=== PATIENT | female | born 1955 | race African-American/Black ===

== ENCOUNTER 2017-03-04 19:02 | Inpatient (IN) ==
[2017-03-04] MEDS ORDERED: methylPREDNISolone SOD SUC 125 MG/2 ML VIAL IV STA (19:38)
[2017-03-04] MEDS ORDERED: NITROGLYCERIN 2% OINT 1 INCH/GM PACK TOP STA (19:38)
[2017-03-04] MEDS ORDERED: ONDANSETRON 4 MG/2 ML VIAL IV STA (19:38)
[2017-03-04] MEDS ORDERED: hydrALAZINE 20 MG/1 ML VIAL IV STA (19:38)
[2017-03-04] MEDS ORDERED: FUROSEMIDE 100 MG/10 ML VIAL IV STA (19:38)
--- NOTE | 2017-03-04 19:56 | EKG Report ---
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
[2017-03-04] MEDS ORDERED: ONDANSETRON 4 MG/2 ML VIAL ONE (19:57)
[2017-03-04] MEDS ORDERED: NITROGLYCERIN 2% OINT 1 INCH/GM PACK TOP ONE (19:57)
[2017-03-04] MEDS ORDERED: hydrALAZINE 20 MG/1 ML VIAL ONE ×2 (19:57→21:14)
[2017-03-04] MEDS ORDERED: FUROSEMIDE 100 MG/10 ML VIAL ONE (19:58)
[2017-03-04] MEDS ORDERED: methylPREDNISolone SOD SUC 125 MG/2 ML VIAL ONE (19:58)
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
[2017-03-04] MEDS ORDERED: ALBUTEROL 2.5 MG/3 ML NEB RESP TX SCH (20:00)
[2017-03-04 20:40] LABS: Apearance,Urine CLEAR (Clear); Bilirubin,Urine Negative (Negative); Blood, Urine Negative (Negative); Glucose,Urine (UA) 150 mg/dL (Negative); Ketones,Urine Negative (Negative); Mucus,Urine Occasional /LPF (Occasional); Nitrite,Urine Negative (Negative); Protein,Urine Negative; Squamous Epithelial Cell,Urine Occasional /HPF (0-10); Urine Color Straw (Yellow); Urine Specific Gravity 1.006 (1.001-1.035); Urine Urobilinogen < 2.0 EU/DL (0.2-1.0)
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
[2017-03-04 20:48] LABS: Alanine Aminotransferase 23 U/L (13-56); Albumin 3.2 G/DL (3.4-5.0); Alkaline Phosphatase 153 U/L (45-117); Aspartate Amino Transferase 27 U/L (0-37); Bilirubin,Total < 0.39 MG/DL (0.2-1.0); Blood Urea Nitrogen 16 MG/DL (7-18); Calcium 10.1 MG/DL (8.5-10.1); Glucose 194 MG/DL (74-106); Osmolality,Calculated 282.5 MOS/KG (273-304); Potassium 4.2 MMOL/L (3.5-5.1); Sodium 139 MMOL/L (136-145); Total Protein 7.2 G/DL (6.4-8.3)
[2017-03-04 20:51] LABS: Troponin I Only 0.207 NG/ML (0.00-0.045)
[2017-03-04 20:52] LABS: Barbiturates Screen,Urine Negative (Negative); Benzodiazepines Screen,Urine Negative (Negative); Cannabinoid Screen,Urine Negative (Negative); Opiate Screen,Urine Negative (Negative); Phencyclidine Screen,Urine Negative (Negative)
[2017-03-04 21:03] LABS: Basophils % 0.4 % (0.0-0.8); Eosinophils # 0.1 10*3/uL (0.0-0.87); Hematocrit 33.5 VOL% (35.7-47.0); Hemoglobin 11.5 GM/DL (12.0-16.0); Immature Granulocytes % 0.4 %; Immature Granulocytes Absolute 0.03 #; Lymphocytes # 3.2 10*3/uL (1.4-4.0); Mean Corpuscular HGB Conc 34.3 GM/DL (32-36); Mean Corpuscular Hemoglobin 31 PG (27-34); Mean Corpuscular Volume 91.5 FL (87-102); Mean Platelet Volume 10.8 FL (9.6-12.0); Monocytes # 0.8 10*3/uL (0.11-0.8); Monocytes % 11.7 % (1.7-12.7); Neutrophils # 2.7 10*3/uL (1.4-7.4); Neutrophils % 39.5 % (38.7-73.9); Platelet Count 229 T/CUMM (130-400); Red Blood Count 3.66 MC/CUMM (3.8-5.5); Red Cell Distribution Width 14.1 % (9.3-17.3); White Blood Count 6.7 T/CUMM (4-12)
[2017-03-04] MEDS ORDERED: ZALEPLON 5 MG CAPSULE PO PRN (21:25)
[2017-03-04] MEDS ORDERED: ACETAMINOPHEN 325 MG TABLET PO PRN (21:25)
[2017-03-04] MEDS ORDERED: GLUCAGON 1 MG VIAL IM PRN (21:25)
[2017-03-04] MEDS ORDERED: ONDANSETRON 4 MG/2 ML VIAL IV PRN (21:25)
[2017-03-04] MEDS ORDERED: DEXTROSE 50% 25 GM/50 ML SYRINGE IV PRN (21:25)
[2017-03-04] MEDS ORDERED: ASPIRIN EC 325 MG TABLET PO STA (21:27)
[2017-03-04] MEDS ORDERED: ASPIRIN 325 MG TABLET ONE (21:33)
[2017-03-04] MEDS ORDERED: LORazepam 2 MG/1 ML VIAL IV STA (22:00)
[2017-03-04] MEDS ORDERED: niCARdipine INJ 25 MG in SODIUM CHLORIDE 0.9% 240 ML IV SCH (22:00)
[2017-03-04] MEDS ORDERED: LORazepam 2 MG/1 ML VIAL ONE (22:04)
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
[2017-03-04 23:54] LABS: Troponin I Only 0.236 NG/ML (0.00-0.045)
[2017-03-05] MEDS ORDERED: LABETALOL 20 MG/4 ML SYRINGE IV PRN (00:19)
[2017-03-05] MEDS: FOLIC ACID 1 MG TABLET PO SCH ×2 (00:29→20:32)
[2017-03-05] MEDS: ENOXAPARIN 40 MG/0.4 ML SYRINGE SUBCUT SCH ×2 (00:29→20:31)
[2017-03-05] MEDS: LORazepam 2 MG/1 ML VIAL IV PRN ×2 (00:42→11:05)
[2017-03-05 04:06] LABS: Basophils % 0.3 % (0.0-0.8); Hematocrit 36.3 VOL% (35.7-47.0); Hemoglobin 12.1 GM/DL (12.0-16.0); Immature Granulocytes % 0.9 %; Immature Granulocytes Absolute 0.06 #; Lymphocytes # 0.9 10*3/uL (1.4-4.0); Lymphocytes % 13.1 % (21.3-54.2); Mean Corpuscular HGB Conc 33.3 GM/DL (32-36); Mean Corpuscular Hemoglobin 31 PG (27-34); Mean Corpuscular Volume 93.6 FL (87-102); Mean Platelet Volume 10.7 FL (9.6-12.0); Monocytes # 0.1 10*3/uL (0.11-0.8); Monocytes % 1.7 % (1.7-12.7); Neutrophils # 5.8 10*3/uL (1.4-7.4); Platelet Count 248 T/CUMM (130-400); Red Blood Count 3.88 MC/CUMM (3.8-5.5); Red Cell Distribution Width 14.3 % (9.3-17.3); White Blood Count 6.9 T/CUMM (4-12)
[2017-03-05] MEDS: MORPHINE 2 MG/1 ML SYRINGE IV PRN ×3 (04:16→20:31)
[2017-03-05] MEDS: hydrALAZINE 20 MG/1 ML VIAL IV PRN (04:18)
[2017-03-05 04:46] LABS: Albumin 3.3 G/DL (3.4-5.0); Bilirubin,Total 0.5 MG/DL (0.2-1.0); Calcium 9.4 MG/DL (8.5-10.1); Osmolality,Calculated 288.4 MOS/KG (273-304); Potassium 3.8 MMOL/L (3.5-5.1); Risk Ratio 2.81; Thyroid Stimulating Hormone 0.682 uIU/ml (0.358-3.74); Total Protein 7.3 G/DL (6.4-8.3); VLDL CHOLESTEROL 46.6 MG/DL
[2017-03-05 04:56] LABS: Troponin I Only 0.272 NG/ML (0.00-0.045)
[2017-03-05] MEDS ORDERED: DEXTROSE 50% 25 GM/50 ML VIAL IV PRN (07:58)
[2017-03-05] MEDS ORDERED: GLUCAGON 1 MG VIAL IM PRN (07:58)
[2017-03-05] MEDS: INSULIN LISPRO 100 UNIT/ML SUBCUT SCH ×4 (08:31→20:30)
[2017-03-05] MEDS: FUROSEMIDE 40 MG/4 ML VIAL IV SCH (08:32)
[2017-03-05 08:40] LABS: Basophils % 0.1 % (0.0-0.8); Hematocrit 32.8 VOL% (35.7-47.0); Hemoglobin 11.4 GM/DL (12.0-16.0); Immature Granulocytes % 0.4 %; Immature Granulocytes Absolute 0.03 #; Lymphocytes # 1.9 10*3/uL (1.4-4.0); Lymphocytes % 22.5 % (21.3-54.2); Mean Corpuscular HGB Conc 34.8 GM/DL (32-36); Mean Corpuscular Hemoglobin 32 PG (27-34); Mean Corpuscular Volume 91.4 FL (87-102); Mean Platelet Volume 10.8 FL (9.6-12.0); Monocytes # 0.7 10*3/uL (0.11-0.8); Monocytes % 7.9 % (1.7-12.7); NRBC # 0.02 10*3/uL; Neutrophils # 5.9 10*3/uL (1.4-7.4); Neutrophils % 69.1 % (38.7-73.9); Platelet Count 243 T/CUMM (130-400); Red Blood Count 3.59 MC/CUMM (3.8-5.5); Red Cell Distribution Width 14.2 % (9.3-17.3); White Blood Count 8.5 T/CUMM (4-12)
--- NOTE | 2017-03-05 08:44 | EKG Report ---
Stationary ECG Study 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
[2017-03-05] MEDS: chlordiazePOXIDE 25 MG CAPSULE PO SCH ×3 (08:47→20:32)
[2017-03-05] MEDS: THIAMINE 100 MG TABLET PO SCH (08:47)
[2017-03-05] MEDS: MULTIVITAMIN (BEROCCA) TABLET PO SCH (08:47)
[2017-03-05] MEDS: PANTOPRAZOLE 40 MG TABLET PO SCH (08:48)
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
[2017-03-05] MEDS ORDERED: METOPROLOL TARTRATE 50 MG TABLET PO SCH (09:00)
[2017-03-05 09:18] LABS: Troponin I Only 0.274 NG/ML (0.00-0.045)
--- NOTE | 2017-03-05 09:24 | Hospitalist Progress Note ---
Assessment and Plan (1) Hypertensive urgency Status: Acute Assessment and plan: Blood pressure is much better controlled today at 113/90. I will continue her present oral medications. Current Visit: Yes (2) Elevated troponin Status: Acute Current Visit: Yes (3) DM type 2 (diabetes mellitus, type 2) Status: Chronic Assessment and plan: Blood glucose this morning is 483. I will continue sliding scale insulin coverage. 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 Current Visit: Yes Qualifiers: Complication of substance-induced condition: uncomplicated Qualified Code(s ): F10.230 - Alcohol dependence with withdrawal, uncomplicated (5) Acute renal insufficiency Status: Acute Assessment and plan: Her BUN and creatinine today are 17 and 1.60 respectively. Her acute renal failure appears to be improved with intravenous normal saline. Current Visit: Yes Hospitalist: Subjective Interval history: Patient was hospitalized here yesterday with acute alcohol withdrawal syndrome, hypertensive urgency, and elevated troponins. She has been treated with intravenous nicardipine, chlordiazepoxide, and Lorazepam. She appears significantly improved today. She is comfortable with no complaints. Exam - Constitutional Vitals: Period Temp Pulse Resp BP Sys/Almanza Pulse Ox Last 24 Hr 98.0 F-98.1 F 72-127 18-30 79-226/52-144 94-100 General appearance: normal weight, no acute distress - Head Head exam: Present: normal inspection - Neck Neck exam: Present: normal inspection - Respiratory Respiratory exam: Present: clear to auscultation bilaterally - Cardiovascular Cardiovascular exam: Present: regular rate and rhythm - GI/Abdominal GI/Abdominal exam: Present: normal bowel sounds, soft, other (Nontender with no palpable masses or hepatosplenomegaly.) - Extremities Exam Extremities exam: Present: normal inspection - Neurological Exam Neurological exam: Present: alert, oriented X3 - Psychiatric Psychiatric exam: Present: normal affect, normal mood - Skin Skin exam: Present: normal color, warm, intact Results - Labs CBC & BMP: 03/05/17 08:11 03/05/17 03:25
[2017-03-05] MEDS: ASPIRIN EC 81 MG TABLET PO SCH (10:54)
--- NOTE | 2017-03-05 11:07 | ECHO Report ---
Deirdre House Exam Date: 03/05/2017 08:52 Referring Physician: Technologist: zia Torre ARDMS, RVT Age: 61 Ht (in): 68 Wt (lb): 191 Gender: F Exam Location: [facility] Echo Indications: Hypertensive urgency, Alcohol withdrawal, Elevated troponin, NIDDM, Palpitations, Bipolar, Hx: cocaine abuse BP: 113 / 90 HR: 105 Rhythm: Sinus Technical Quality: IMPRESSIONS Normal left ventricular cavity size. Mild concentric left ventricular hypertrophy. Left ventricular ejection fraction is estimated at 60 %. Normal disatolic function. MEASUREMENTS (Male / Female) Normal Values 2D ECHO LV Diastolic Diameter PLAX 4.3 cm 4.2 - 5.9 / 3.9 - 5.3 cm LV Systolic Diameter PLAX 2.8 cm LV Fractional Shortening PLAX 35.9 % IVS Diastolic Thickness 1.3 cm 0.6 - 1.0 / 0.6 - 0.9 cm LVPW Diastolic Thickness 1.4 cm 0.6 - 1.0 / 0.6 - 0.9 cm RV Internal Dim ED PLAX 3.6 cm Aortic Root Diameter 3.6 cm LA Systolic Diameter LX 3.9 cm 3.0 - 4.0 / 2.7 - 3.8 cm FINDINGS Left Ventricle Normal left ventricular cavity size. Mild concentric left ventricular hypertrophy. Left ventricular ejection fraction is estimated at 60 %. Normal disatolic function. Right Ventricle The right ventricle is normal in size and function. Right Atrium The right atrium is normal in size. Left Atrium The left atrium is normal in size. Mitral Valve Morphologically normal mitral valve without significant stenosis or prolapse. There is no mitral regurgitation. Aortic Valve Morphologically normal aortic valve without significant sclerosis or stenosis. There is no aortic regurgitation. Tricuspid Valve Morphologically normal tricuspid valve without significant stenosis or regurgitation. Pulmonary artery systolic pressure is normal. Pulmonic Valve Pulmonic valve not well visualized. Trace pulmonary valve regurgitation. Pericardium Normal pericardium without effusion. Aorta Normal ascending aorta dimension. Jonas Marie (Electronically Signed) Final Date: 05 March 2017 11:06
[2017-03-05] MEDS: CARBIDOPA/LEVODOPA 25-100 MG TABLET PO SCH ×2 (14:25→20:32)
[2017-03-05] MEDS: NICOTINE 21 MG/24 HR PATCH TRANSDERM PRN (20:30)
[2017-03-05] MEDS: GABAPENTIN 100 MG CAPSULE PO SCH (20:31)
[2017-03-05] MEDS: hydrOXYzine HCL 25 MG TABLET PO SCH (20:32)
[2017-03-05] MEDS: ATORVASTATIN 10 MG TABLET PO SCH (20:32)
[2017-03-05] MEDS: lamoTRIgine 100 MG TABLET PO SCH (20:32)
[2017-03-05] MEDS: risperiDONE 1 MG TABLET PO SCH (20:32)
[2017-03-05] MEDS: TOPIRAMATE 200 MG TABLET PO SCH (21:13)
[2017-03-05] MEDS ORDERED: FUROSEMIDE 40 MG/4 ML VIAL IV ONE (22:43)
[2017-03-06] MEDS: LORazepam 2 MG/1 ML VIAL IV PRN (00:35)
[2017-03-06 03:30] LABS: Basophils % 0.5 % (0.0-0.8); Eosinophils # 0.1 10*3/uL (0.0-0.87); Eosinophils % 1.3 % (0.00-10.9); Hematocrit 32.2 VOL% (35.7-47.0); Hemoglobin 10.9 GM/DL (12.0-16.0); Immature Granulocytes % 0.5 %; Immature Granulocytes Absolute 0.04 #; Lymphocytes # 3.8 10*3/uL (1.4-4.0); Lymphocytes % 45.7 % (21.3-54.2); Mean Corpuscular HGB Conc 33.9 GM/DL (32-36); Mean Corpuscular Hemoglobin 31 PG (27-34); Mean Corpuscular Volume 92.8 FL (87-102); Mean Platelet Volume 10.9 FL (9.6-12.0); Monocytes # 0.7 10*3/uL (0.11-0.8); Monocytes % 8.9 % (1.7-12.7); Neutrophils # 3.6 10*3/uL (1.4-7.4); Neutrophils % 43.1 % (38.7-73.9); Platelet Count 227 T/CUMM (130-400); Red Blood Count 3.47 MC/CUMM (3.8-5.5); Red Cell Distribution Width 14.8 % (9.3-17.3); White Blood Count 8.3 T/CUMM (4-12)
[2017-03-06 03:44] LABS: Calcium 8.4 MG/DL (8.5-10.1); Magnesium 2.1 MG/DL (1.8-2.4); Osmolality,Calculated 287.7 MOS/KG (273-304); Potassium 3.5 MMOL/L (3.5-5.1)
[2017-03-06 04:27] LABS: Troponin I Only 0.269 NG/ML (0.00-0.045)
[2017-03-06] MEDS: MORPHINE 2 MG/1 ML SYRINGE IV PRN ×2 (05:06→11:01)
[2017-03-06] MEDS: hydrALAZINE 20 MG/1 ML VIAL IV PRN (05:06)
[2017-03-06] MEDS: LEVOTHYROXINE 100 MCG TABLET PO SCH (06:25)
[2017-03-06] MEDS: INSULIN LISPRO 100 UNIT/ML SUBCUT SCH ×4 (08:25→21:38)
[2017-03-06] MEDS: FUROSEMIDE 40 MG/4 ML VIAL IV SCH (08:25)
[2017-03-06] MEDS: POLYETHYLENE GLYCOL POWDER 17 GM PACK PO SCH (08:26)
[2017-03-06] MEDS: hydroCHLOROthiazide 12.5 MG CAPSULE PO SCH (08:26)
[2017-03-06] MEDS: chlordiazePOXIDE 25 MG CAPSULE PO SCH ×3 (08:27→20:34)
[2017-03-06] MEDS: ESTRADIOL 1 MG TABLET PO SCH (08:27)
[2017-03-06] MEDS: lamoTRIgine 100 MG TABLET PO SCH ×2 (08:27→20:34)
[2017-03-06] MEDS: THIAMINE 100 MG TABLET PO SCH (08:27)
[2017-03-06] MEDS: DULoxetine 30 MG CAPSULE PO SCH (08:27)
[2017-03-06] MEDS: CARBIDOPA/LEVODOPA 25-100 MG TABLET PO SCH ×3 (08:28→20:34)
[2017-03-06] MEDS: MULTIVITAMIN (BEROCCA) TABLET PO SCH (08:28)
[2017-03-06] MEDS: ASPIRIN EC 81 MG TABLET PO SCH (08:28)
[2017-03-06] MEDS: IRBESARTAN 150 MG TABLET PO SCH (08:29)
[2017-03-06] MEDS: ATENOLOL 50 MG TABLET PO SCH (08:31)
[2017-03-06] MEDS: hydrOXYzine HCL 25 MG TABLET PO SCH ×2 (08:31→20:34)
[2017-03-06] MEDS: GABAPENTIN 100 MG CAPSULE PO SCH ×2 (08:31→20:34)
[2017-03-06] MEDS: PANTOPRAZOLE 40 MG TABLET PO SCH (08:32)
[2017-03-06] MEDS: ALLOPURINOL 300 MG TABLET PO SCH (08:32)
[2017-03-06] MEDS: TOPIRAMATE 200 MG TABLET PO SCH ×2 (08:32→20:34)
[2017-03-06] MEDS ORDERED: PANTOPRAZOLE 40 MG TABLET PO SCH (09:00)
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
[2017-03-06 11:08] LABS: Creatinine,Urine Random < 13 MG/DL
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
[2017-03-06] MEDS: FOLIC ACID 1 MG TABLET PO SCH (20:33)
[2017-03-06] MEDS: ATORVASTATIN 10 MG TABLET PO SCH (20:34)
[2017-03-06] MEDS: ENOXAPARIN 40 MG/0.4 ML SYRINGE SUBCUT SCH (20:34)
[2017-03-06] MEDS: risperiDONE 1 MG TABLET PO SCH (21:38)
[2017-03-07] MEDS: INSULIN LISPRO 100 UNIT/ML SUBCUT SCH ×2 (08:45→12:26)
[2017-03-07] MEDS: lamoTRIgine 100 MG TABLET PO SCH (08:47)
[2017-03-07] MEDS: POLYETHYLENE GLYCOL POWDER 17 GM PACK PO SCH (08:47)
[2017-03-07] MEDS: IRBESARTAN 150 MG TABLET PO SCH (08:47)
[2017-03-07] MEDS: THIAMINE 100 MG TABLET PO SCH (08:48)
[2017-03-07] MEDS: chlordiazePOXIDE 25 MG CAPSULE PO SCH (08:48)
[2017-03-07] MEDS: MULTIVITAMIN (BEROCCA) TABLET PO SCH (08:48)
[2017-03-07] MEDS: ATENOLOL 50 MG TABLET PO SCH (08:49)
[2017-03-07] MEDS: ASPIRIN EC 81 MG TABLET PO SCH (08:49)
[2017-03-07] MEDS: hydrOXYzine HCL 25 MG TABLET PO SCH (08:49)
[2017-03-07] MEDS: ESTRADIOL 1 MG TABLET PO SCH (08:50)
[2017-03-07] MEDS: DULoxetine 30 MG CAPSULE PO SCH (08:50)
[2017-03-07] MEDS: PANTOPRAZOLE 40 MG TABLET PO SCH (08:51)
[2017-03-07] MEDS: hydroCHLOROthiazide 12.5 MG CAPSULE PO SCH (08:51)
[2017-03-07] MEDS: ALLOPURINOL 300 MG TABLET PO SCH (08:51)
[2017-03-07] MEDS: LEVOTHYROXINE 100 MCG TABLET PO SCH (08:51)
[2017-03-07] MEDS: GABAPENTIN 100 MG CAPSULE PO SCH (08:51)
[2017-03-07] MEDS ORDERED: FUROSEMIDE 40 MG TABLET PO SCH (09:00)
[2017-03-07] MEDS: NICOTINE 21 MG/24 HR PATCH TRANSDERM PRN (09:06)
[2017-03-07] MEDS: TOPIRAMATE 200 MG TABLET PO SCH (09:51)
[2017-03-07] MEDS: CARBIDOPA/LEVODOPA 25-100 MG TABLET PO SCH (10:21)
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
[2017-03-07 11:57] VITALS: BP 132/82
[2017-03-07] MEDS: MORPHINE 2 MG/1 ML SYRINGE IV PRN (12:31)
== END 2017-03-07 15:48 | DRG 305 ==
LOC: EDBD → N.ED 19:02 → N.EDINP 21:25 → SUATTDRO 21:25 → N.ICU 22:01 → N.2E 03-05 15:45
PROVIDERS: ADMIT Family Medicine; ATTEND Internal Medicine Infectious Disease